=== PATIENT | male | born 2000 | race Caucasian/White ===

== ENCOUNTER 2025-07-02 05:56 | Day surgery (SDC) | payer BC ==
[2025-06-29 13:53] VITALS: BMI 27.6
[2025-07-02] MEDS ORDERED: Ferric Subsulfate 8 ML TOPICAL SOLN ONE (06:40)
[2025-07-02] MEDS ORDERED: PROPOFOL 40 ML ONE (06:53)
[2025-07-02] MEDS ORDERED: Ondansetron PF 4 MG/2 ML Vial ONE ×2 (07:37→10:05)
[2025-07-02] MEDS ORDERED: Lidocaine 1% PF 5 ML VIAL ONE (07:37)
[2025-07-02] MEDS ORDERED: Hydrocodone-Acetamin 15 ML UDCUP ONE (09:39)
== END 2025-07-02 10:42 | disposition home or self-care (01) ==
LOC: CSHSDC 05:56
PROVIDERS: ATTEND Specialist
DX: J35.3 Hypertrophy of tonsils with hypertrophy of adenoids (principal); J35.01 Chronic tonsillitis; J30.1 Allergic rhinitis due to pollen; G47.33 Obstructive sleep apnea (adult) (pediatric)
CPT/HCPCS: 88304; J1100; J2405; J2704; J3010